=== PATIENT | female | born 1975 | race Asian ===

== ENCOUNTER 2016-07-06 05:19 | Emergency (ER) | payer BC ==
[~2016-07-06] VITALS: Ht 154.9 cm; Wt 44.5 kg
[2016-07-06] MEDS ORDERED: PROZAC10 MG PO (05:36)
[2016-07-06] MEDS ORDERED: RISPERDAL0.5 MG PO (05:37)
[2016-07-06] MEDS ORDERED: WELLBUTRIN 75 M75 M1 PO (05:38)
[2016-07-06 05:59] LABS: URINE BILIRUBIN NEGATIVE (Negative); URINE BLOOD 1+ (Negative); URINE COLOR YELLOW; URINE GLUCOSE-RANDOM* NEGATIVE (Negative); URINE KETONES NEGATIVE (Negative); URINE LEUKOCYTES-REFLEX NEGATIVE (Negative); URINE PROTEIN (DIPSTICK) NEGATIVE (Negative); URINE SPECIFIC GRAVITY 1.025 (1.003-1.035); URINE UROBILINOGEN 0.2 E.U./dl (0.2-1.0)
[2016-07-06 06:14] LABS: CALCIUM 8.6 mg/dL (8.5-10.1); CREATININE 0.9 mg/dL (0.6-1.3); HEMATOCRIT 39.7 % (37.0-47.0); HEMOGLOBIN 13.1 gm/dL (12.0-15.0); MANUAL DIFF YES; MCH 28.4 pg (26.0-34.0); MCV 86.2 fL (80.0-100.0); PLATELET COUNT 337 thou/uL (150-400); POTASSIUM 4.5 mmol/L (3.5-5.1); RBC 4.61 mil/uL (4.20-5.00); RDW 15.8 % (10.5-14.5); WBC 4.6 thou/uL (4.0-11.0)
[2016-07-06 06:21] LABS: ALBUMIN 4.1 g/dL (3.4-5.0); TOTAL BILIRUBIN 0.3 mg/dL (<0.1-1.0); TOTAL PROTEIN 7.7 g/dL (6.4-8.2)
[2016-07-06 06:23] LABS: SQUAMOUS >10 Many /LPF (0-3)
[2016-07-06 06:24] LABS: URINE RBC 0-2 Rare /HPF (0-2); URINE WBC-REFLEX 0-5 Rare /HPF (0-5)
[2016-07-06 06:25] LABS: CASTS None Seen /LPF (None Seen); CRYSTALS None Seen /LPF (None Seen)
[2016-07-06 06:48] LABS: ABSOLUTE NEUTROPHILS 2.6 thou/uL (1.4-8.2); METAMYELOCYTES 1 %; TOTAL CELL COUNT 100
[2016-07-06 06:49] LABS: ANISOCYTOSIS 1+; OVALOCYTES FEW
[2016-07-06] MEDS ORDERED: BENTYL 20 MG TA20 M1 PO (08:03)
[2016-07-06] MEDS ORDERED: SENOKOT-S1 TA1 PO (08:03)
[2016-07-06 08:40] VITALS: BP 106/71
== END 2016-07-06 08:42 | disposition home or self-care (01) ==
LOC: ER 05:19
PROVIDERS: Emergency Medicine
DX: R10.12 Left upper quadrant pain (principal); R10.32 Left lower quadrant pain; R10.31 Right lower quadrant pain; Z88.8 Allergy status to other drugs, medicaments and biological substances

== ENCOUNTER 2021-03-03 17:59 | Emergency (ER) | payer BC ==
[~2021-03-03] VITALS: Ht 149.9 cm; Wt 39.9 kg
[~2021-03-03 17:59] MED LIST: BENTYL 20 MG TA20 M1 PO; PROZAC10 MG PO; RISPERDAL0.5 MG PO; SENOKOT-S1 TA1 PO; WELLBUTRIN 75 M75 M1 PO
[2021-03-03 18:30] LABS: ABSOLUTE NEUTROPHILS 8.7 thou/uL (1.4-8.2); BASOPHILS 1.6 % (0.0-2.0); EOSINOPHILS 0.1 % (0.0-3.0); HEMATOCRIT 38.2 % (37.0-47.0); HEMOGLOBIN 12.2 gm/dL (12.0-15.0); LYMPHOCYTES 6.4 % (24.0-44.0); MCH 25.5 pg (26.0-34.0); MCHC 31.9 g/dL (28.0-37.0); MCV 80.1 fL (80.0-100.0); MONOCYTES 3.8 % (1.0-8.0); PLATELET COUNT 408 thou/uL (150-400); POLYS 88.1 % (36.0-66.0); RBC 4.76 mil/uL (4.20-5.00); WBC 9.9 thou/uL (4.0-11.0)
[2021-03-03 18:40] LABS: CALCIUM 9.2 mg/dL (8.5-10.1); CREATININE 1.1 mg/dL (0.6-1.0); POTASSIUM 3.3 mmol/L (3.5-5.1)
[2021-03-03 18:44] LABS: ALBUMIN 4.4 g/dL (3.4-5.0); AMP/METHAMP Negative (Negative); BARBITURATES Negative (Negative); BENZODIAZEPINES Negative (Negative); COCAINE Negative (Negative); METHADONE Negative (Negative); OPIATES Negative (Negative); PCP Negative (Negative); TOTAL BILIRUBIN 0.3 mg/dL (0.2-1.0); TOTAL PROTEIN 8.5 g/dL (6.4-8.2)
[2021-03-03] MEDS ORDERED: HALOPERIDOL 2 MG2 M1 PO (19:36)
[2021-03-03 20:50] VITALS: BP 129/83
== END 2021-03-03 20:45 | disposition home or self-care (01) ==
LOC: ER 17:59
PROVIDERS: Emergency Medicine
DX: R11.2 Nausea with vomiting, unspecified (principal); F12.90 Cannabis use, unspecified, uncomplicated